=== PATIENT | male | born 1960 | race Caucasian/White ===

== ENCOUNTER 2023-10-04 12:13 | Emergency (ER) | payer MEDICAID ==
[~2023-10-04] VITALS: Ht 170.2 cm; Wt 74.0 kg
[~2023-10-04 12:13] MED LIST: ALBU18HF2 IH; ANTI-ANXIETY MED PO; ASPI-1160 PO; ATOR10TA PO; LISI1TAB11 PO; PREDNISONE PO; SEROQUEL PO; TRAM50TA3 PO; VICODIN PO
[2023-10-04 12:15] VITALS: O2SAT 96
[2023-10-04 12:53] LABS: CLARITY URINE CLOUDY (CLEAR); COLOR URINE RED (YELLOW); GLUCOSE URINE NEGATIVE (NEGATIVE); KETONES URINE NEGATIVE (NEGATIVE); LEUKOCYTE ESTERASE URINE 1+ (NEGATIVE); NITRITE URINE POSITIVE (NEGATIVE); OCCULT BLOOD URINE 2+ (NEGATIVE); PROTEIN URINE 2+ (NEGATIVE); SPECIFIC GRAVITY URINE 1.014 (1.005-1.030); UROBILINOGEN URINE 0.2 E.U./dL (0.2-1.0)
[2023-10-04 13:11] LABS: BACTERIA URINE NONE SEEN; RBC URINE TNTC /hpf (0-2); SQUAMOUS EPITHELIAL CELL URINE NONE SEEN /lpf (RARE/1+); YEAST URINE NONE SEEN
[2023-10-04] MEDS ORDERED: ALBU6.7H15 INH (13:30)
[2023-10-04] MEDS ORDERED: CEPHALEXIN 250MG CAPSULE PO ONE (13:30)
[2023-10-04] MEDS ORDERED: CIPR500T5 MT (13:30)
[2023-10-04] MEDS ORDERED: HYDR-4001 MT (13:30)
[2023-10-04] MEDS ORDERED: PYR200 MT (13:30)
[2023-10-04] MEDS ORDERED: CIPR750T4 MT (13:45)
[2023-10-04 13:52] VITALS: TEMP 98.6
[2023-10-04 13:55] VITALS: BP 140/85; PULSE 63; RESP 20
[2023-10-04] MEDS: LEVOFLOXACIN 500MG TABLET PO ONE (13:55)
[2023-10-04] MEDS: MORPHINE SULFATE 4 MG/ML INJ (FOR IV/IM USE) IM ONE (13:55)
[2023-10-04] MEDS: PHENAZOPYRIDINE HCL 100MG TABLET PO ONE (13:55)
== END 2023-10-04 14:04 | disposition home or self-care (01) ==
LOC: ER 12:13
DX: N39.0 Urinary tract infection, site not specified (principal); E11.9 Type 2 diabetes mellitus without complications; I10 Essential (primary) hypertension; J45.909 Unspecified asthma, uncomplicated; Z90.49 Acquired absence of other specified parts of digestive tract; Z88.6 Allergy status to analgesic agent; Z88.8 Allergy status to other drugs, medicaments and biological substances; Z91.018 Allergy to other foods
CPT/HCPCS: 99283; 81003; 87086; 96372; J2270

== ENCOUNTER 2023-11-05 10:16 | Emergency (ER) | payer MEDICAID ==
[~2023-11-05] VITALS: Ht 172.7 cm; Wt 91.0 kg
[~2023-11-05 10:16] MED LIST changes: +ALBU6.7H15 INH; +CIPR750T4 MT; +HYDR-4001 MT; +PYR200 MT
[2023-11-05 10:29] VITALS: TEMP 98.5
[2023-11-05 10:45] VITALS: BP 136/70
[2023-11-05] MEDS: HYDROCODONE/ACETAMINOPHEN 5/325MG TABLET PO ONE (10:45)
[2023-11-05] MEDS: DEXAMETHASONE 4MG TABLET PO ONE (10:45)
[2023-11-05 11:12] VITALS: PULSE 82; RESP 18; O2SAT 97
[2023-11-05] MEDS: IPRATROPIUM/ALBUTEROL 0.5-3(2.5)MG/3ML NEB HHN ONE (11:12)
== END 2023-11-05 11:58 | disposition home or self-care (01) ==
LOC: ER 10:16
DX: J45.909 Unspecified asthma, uncomplicated (principal); G89.18 Other acute postprocedural pain; E11.9 Type 2 diabetes mellitus without complications; I10 Essential (primary) hypertension; Z88.6 Allergy status to analgesic agent; Z88.8 Allergy status to other drugs, medicaments and biological substances; Z91.09 Other allergy status, other than to drugs and biological substances; Z91.048 Other nonmedicinal substance allergy status; Z98.890 Other specified postprocedural states
CPT/HCPCS: 94640; 99283; J8540; Z7610 ×2

== ENCOUNTER 2024-05-13 10:01 | Emergency (ER) | payer MEDICARE, MEDICAID ==
[~2024-05-13] VITALS: Ht 167.6 cm; Wt 80.0 kg
[2024-05-13 10:05] VITALS: BP 167/86; PULSE 86; RESP 20; TEMP 98.2; O2SAT 98
[2024-05-13] MEDS: ACETAMINOPHEN 325MG TABLET PO ONE (11:13)
[2024-05-13] MEDS ORDERED: ACET-2708 MT (11:33)
== END 2024-05-13 11:59 | disposition home or self-care (01) ==
LOC: ER 10:01
DX: M79.674 Pain in right toe(s) (principal); E11.9 Type 2 diabetes mellitus without complications; I10 Essential (primary) hypertension; J45.909 Unspecified asthma, uncomplicated; Z90.49 Acquired absence of other specified parts of digestive tract; Z79.899 Other long term (current) drug therapy; Z88.6 Allergy status to analgesic agent
CPT/HCPCS: 73630; 99283